=== PATIENT | male | born 1935 | race Caucasian/White ===

== ENCOUNTER 2025-06-23 18:31 | Emergency (ER) | payer MEDICARE, SELFPAY ==
--- NOTE | ~2025-06-23 | CT_ITS ---
EXAMINATION: CT abdomen pelvis wo con DATE: 06/23/2025 23:00 INDICATION: Suprapubic pain. TECHNIQUE: Computed tomography (CT) of the abdomen and pelvis was performed without intravenous contrast. Automated exposure control and iterative reconstruction technique were employed. The dose-length product was 291.30 mGy-cm. COMPARISON: None. FINDINGS: The visualized portions of the lung bases demonstrate mild atelectasis. No pleural effusion. The heart size is normal. There are coronary artery calcifications. No pericardial effusion. Pectus excavatum is noted. The liver and gallbladder are normal. 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 The pancreas, adrenal glands, are normal. There are cysts in the kidneys measuring up to 2.1 cm on the right. The bladder is decompressed by a Haley catheter. There are stones in the bladder measuring up to 2.7 cm in a bladder diverticulum on the left. There is diffuse bladder wall thickening, likely secondary to chronic outlet obstruction from the moderately enlarged prostate. There is diverticulosis of the colon without evidence of diverticulitis. The appendix is not visualized. There are no dilated loops of bowel. There are no pathologically enlarged lymph nodes. There is no free intraperitoneal fluid. There are fusiform aneurysms of the common iliac arteries measuring up to 2.2 cm on the left. 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 IMPRESSION: 1. Bladder stones. Reviewed, dictated and finalized at location E. N [employer] IMPRESSION: 1. Bladder stones.
[2025-06-23 18:41] VITALS: BP 126/74; PULSE 78; RESP 16; TEMP 36.8; O2SAT 100
--- NOTE | 2025-06-23 21:03 | ED_ITS ---
HPI - Male Genitourinary General Chief complaint: Urogenital-Male Stated complaint: male urogenital Time Seen by Provider: 06/23/25 21:02 Source: patient and family Mode of arrival: ambulatory Limitations: no limitations History of Present Illness HPI Narrative: Patient is an 89-year-old male presents to the emergency department accompanied by his son complaining of difficulty urinating. Patient notes over the past 1 week when he was the bathroom he is not able to void any significant amount is starting to get some suprapubic fullness like a sensation in which she needs to pee but isn't getting enough out in his bladder is getting distended. Patient admits to history of this in the past, was found to have bladder stones and needed surgery to get them removed and had a Haley catheter after the procedure. Patient denies any known history of prostate enlargement. Patient denies any nausea, vomiting, fevers, recent injuries, recent illness. Patient admits to regular bowel movements. Patient saw a urologist out of [facility] in the past. Patient admits to urinary frequency and urinary urgency. Related Data Allergies Allergy/AdvReac Type Severity Reaction Status Date / Time brimonidine (From Alphagan P) Allergy Unknown Unknown Verified 06/23/25 18:38 dorzolamide (From Trusopt) Allergy Unknown Unknown Verified 06/23/25 18:38 timolol (From Timoptic) Allergy Unknown Unknown Verified 06/23/25 18:38 oxybutynin Allergy Blurry Verified 06/23/25 18:38 Vision tamsulosin Allergy Blurry Verified 06/23/25 18:38 Vision Review of Systems 2 Review of Systems: A 10 system review of systems was completed on the patient and is negative except for what is stated in the HPI. Nursing and ancillary documentation was reviewed. Exam 2 Narrative: CONST: No acute distress. Well nourished. HENMT: Head is normocephalic and atraumatic. Moist mucous membranes. No posterior oropharynx erythema. EYES: No scleral icterus. NECK: No meningeal signs. RESP: Able to speak in full sentences. Normal respiratory effort. CTAB. CARDIO: Regular rate. 2+ DP and radial pulses bilaterally. GI: Nondistended. Mild suprapubic fullness. Soft. : No CVA tenderness to palpation. SKIN: No rashes or lesions noted on exposed skin. NEURO: Oriented x3. Moves all extremities. EXTREM/MSK/BACK: No pedal edema. PSYCH: Normal affect. Course Vital Signs Vital signs: Vital Signs Temperature 98.2 F 06/23/25 18:41 Pulse Rate 78 06/23/25 18:41 Respiratory Rate 16 06/23/25 18:41 Blood Pressure 126/74 06/23/25 18:41 Pulse Oximetry 100 06/23/25 18:41 Temperature 98.1 F 06/24/25 01:32 Pulse Rate 67 06/24/25 01:32 Respiratory Rate 20 06/24/25 01:32 Blood Pressure 113/76 06/24/25 01:32 Pulse Oximetry 100 06/24/25 01:32 MDM MDM Narrative Medical decision making narrative: Patient presents with the above complaint. Initial vitals are remarkable for no significant abnormalities. Physical examination as noted above. Plan discussed: Laboratory analysis, CT of the pelvis without contrast, continues cardiac monitoring, continuous pulse oximetry, bladder scan. patient has tried avoid twice and only a small amount came out, bladder scan revealed a postvoid residual near 300 cc, Haley catheter ordered for urinary retention. Given patient's history of bladder stones as a source of his urinary retention will obtain a CT. CT of the abdomen pelvis preliminary findings with Radiology impression is a Haley catheter is noted extending through the enlarged prostate gland into the decompressed bladder. Bladder wall prominence is of uncertain significance with complete decompression. However, questionable subtle perivesicular fat stranding raises the suspicion for potential cystitis. There are multiple calcifications noted throughout the bladder. There is a collection of calcification in the presumed left posterior bladder diverticulum measuring 2.7 x 1.5 x 2 cm. Incidental findings include the unenhanced kidneys demonstrate renal vascular calcifications. There is suspected subcentimeter nonobstructing nephrolithiasis on the left. No hydronephrosis or ureteral stones. No bowel obstruction. Evaluation of the bowel mucosa is limited. [id number] stool burden. No free intraperitoneal fluid or pneumoperitoneum. Incidental normal caliber retrocecal appendix. The unenhanced liver, gallbladder, pancreas, spleen, adrenal glands and kidneys are unremarkable. Incidental 1.9 cm cortical cyst involving the superior pole of the right kidney. Atherosclerotic calcification involving the aorta without aneurysm. 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 No acute perivascular abnormality. On reassessment patient is resting comfortably. No acute distress, denies any current complaints, Haley catheter in place and significant amount of urine output present. I discussed all the results including all labs and CT findings with patient and son, plan of care discussed. Patient is unaware of the iliac artery aneurysms, we discussed management and need to follow-up about these with his primary care physician to get a vascular surgery referral. Discussed plan to talk with Urology. patient has been provided with a dose of ceftriaxone for UTI. No old urinary cultures on file. I spoke with Dr. oWodruff from Urology, notes to have the patient follow-up with him in the office, agrees with plan of care for antibiotics and treat for urinary retention with Haley catheter to go home with. Patient was reassessed at the bedside. No changes in physical exam. Patient is in no acute distress. Patient provided with a leg bag, Haley catheter care education provided by nursing staff for both patient and son. The patient has remained stable throughout the entire ED visit. Counseled patient regarding diagnostic results and potential diagnosis. Anticipatory guidance provided. Patient instructed to follow up with Urology in the next 3 days and primary care physician in the next 3 days. Patient counseled on: false reassurance from an emergency department evaluation; no current evidence of a medical emergency; return immediately for any new, recurrent, worsening, concerning, or refractory symptoms. Patient prescribed Keflex. Prescription sent to preferred pharmacy. Medications discussed with patient. Additional verbal and printed discharge instructions were given and discussed with the patient. Patient verbally acknowledges understanding of condition and discharge instructions. All questions were answered to the patient's satisfaction. Patient is in agreement with the plan of care. The patient is stable for discharge and was discharged without incident. Differential Diagnosis Differential Diagnosis: Urinary retention, UTI, bladder stone, prostate enlargement. Lab Data MDM Lab Attestation statement: I personally reviewed the patient's lab results. Lab results narrative: CBC reveals a hemoglobin of 13.2. Comprehensive metabolic panel reveals a chloride of 111, bicarb 21, BUN of 22. Magnesium is 2.0. Urinalysis has a turbid appearance with 2+ protein, 2+ blood, positive nitrate, 3+ leukocyte esterase, 21-50 RBCs, greater than 100 wbc's, 4+ bacteria. 06/23/25 22:00 06/23/25 22:02 Labs: Lab Results 06/23/25 06/23/25 06/23/25 Range/Units 21:35 22:00 22:02 WBC 8.4 (4.5-10.0) K/mm3 RBC 4.13 L (4.6-6.20) M/mm3 Hgb 13.2 L (14.0-18.0) g/dL Hct 40.1 L (42.0-52.0) % MCV 97.1 (80-100) fl MCH 32.0 (26-34) pg MCHC 32.9 (32-36) g/dl RDW 12.5 (11.5-14.5) % Plt Count 156 (150-375) k/mm3 MPV 9.9 (7.4-10.4) fl Immature Gran % (Auto) 0.4 (0-0.5) % Neut % (Auto) 49.4 (45.5-73.1) % Lymph % (Auto) 34.2 (18.3-44.2) % [place] % (Auto) 13.6 H (2.6-8.5) % Eos % (Auto) 1.9 (0-4.4) % Baso % (Auto) 0.5 (0.2-1.2) % Lymph # (Auto) 2.88 (0.9-3.2) K/mm3 [place] # (Auto) 1.1 H (0.1-0.6) K/mm3 Eos # (Auto) 0.2 (0-0.3) K/mm3 Baso # (Auto) 0.0 (0.0-0.1) K/mm3 Abs Immat Gran (auto) 0.03 (0.00-0.031) K/mm3 Absolute Neuts (auto) 4.2 (1.3-6.7) K/mm3 Absolute Nucleated RBC 0.000 (0.0-0.012) K/mm3 Nucleated RBC % 0.0 (0.0-0.2) % Sodium 137 (137-145) mmol/L Potassium 3.9 (3.4-5.0) mmol/L Chloride 111 H (98-107) mmol/L Carbon Dioxide 21 L (22-30) mmol/L Anion Gap 5 (4-12) mmol/L BUN 22 H (9-20) mg/dL Creatinine 1.05 (0.7-1.3) mg/dL Estim Creat Clear Calc 41 ml/min Estimated GFR > 60 (59 - ) Glucose 90 (65-110) mg/dL Calcium 9.0 (8.4-10.2) mg/dL Magnesium 2.0 (1.6-2.3) mg/dL Total Bilirubin 0.5 (0.2-1.3) mg/dL AST 32 (17-59) U/L ALT 24 (6-50) U/L Alkaline Phosphatase 94 (38-126) U/L Total Protein 7.0 (6.3-8.2) g/dL Albumin 3.9 (3.5-5.1) g/dL Urine Color Yellow (Yellow) Urine Appearance Turbid H (Clear) Urine pH 6.5 (5.0-9.0) Ur Specific Coulter 1.017 (1.001-1.035) Urine Protein 2+ H (Negative) mg/dL Urine Glucose (UA) Negative (Negative) mg/dL Urine Ketones Negative (Negative) mg/dL Ur Blood (Man) 2+ H (Negative) Urine Nitrate Positive H (Negative) Urine Bilirubin Negative (Negative) Urine Urobilinogen 1.0 (<2.0) mg/dL Leukocyte Esterase Rfl 3+ H (Negative) NIRALI/UL Urine RBC 21-50 H (0-2) /hpf Urine WBC >100 H (0-3) /hpf Ur Squamous Epith Cells None seen (Few) /hpf Urine Bacteria 4+ H /hpf Urine Casts 3-5 Discharge Plan Discharge Clinical Impression: Acute urinary retention, Enlarged prostate, Bladder stones, Aneurysm artery, iliac, Acute UTI Patient Disposition: Home Condition: Stable Instructions: Antibiotic Form, Urinary Retention in Men (ED), Enlarged Prostate (BPH) (ED), Urinary Tract Infection in Men (ED), Haley Catheter Placement and Care (ED), Bladder Stones (ED) Additional Instructions: Follow-up with your primary care physician in the next few days for reassessment and to discuss further care and vascular surgery referral for your 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 Keep the Haley catheter in place and follow-up with urology in the next 3 days, call to schedule an appointment. Take the antibiotics as prescribed to completion. Return immediately to the emergency department for any new or concerning symptoms especially lack of urine output in the Haley bag, fever, nausea, vomiting, pain, or any emergent concerns for life, limb, eyesight. Patient Language: Romanian Prescriptions: New cephalexin 500 mg capsule 500 mg PO Q6H 7 Days Qty: 28 0RF Follow-up/Referrals: George Woodruff MD [Physician, Urology] - 3 Days PHYSICIAN,LOCATION DIRECTOR [Non-Staff, Internal Medicine] - 3 Days Time of Disposition: 00:59
[2025-06-23 21:46] LABS: Add Urine Microscopic? YES; Appearance Urine Turbid (Clear); Glucose Urine UA Negative (Negative); Leukocyte Esterase Ur 3+ LEU/UL (Negative); Nitrate Urine Positive (Negative); Specific Grav Ur 1.017 (1.001-1.035)
[2025-06-23] MEDS: LIDOCAINE 2% GEL UROJET 10 ML PKG MUCOUS MEM (22:09)
[2025-06-23 22:19] LABS: Hematocrit 40.1 % (42.0-52.0); Hemoglobin 13.2 g/dL (14.0-18.0); Immature Granulocyte Percent A 0.4 % (0-0.5); Lymphocytes Absolute Auto 2.88 K/mm3 (0.9-3.2); Mean Corpuscular HGB Conc 32.9 g/dl (32-36); Mean Corpuscular Hemoglobin 32.0 pg (26-34); Mean Corpuscular Volume 97.1 fl (80-100); Nucleated Red Blood Cells Absolute Auto 0.000 K/mm3 (0.0-0.012); Nucleated Red Blood Cells Perc 0.0 % (0.0-0.2); Platelet Count Result 156 k/mm3 (150-375); Red Blood Count 4.13 M/mm3 (4.6-6.20); White Blood Count 8.4 K/mm3 (4.5-10.0)
[2025-06-23 22:34] LABS: Alanine Aminotransferase 24 U/L (6-50); Albumin Level 3.9 g/dL (3.5-5.1); Alkaline Phosphatase 94 U/L (38-126); Anion Gap 5 mmol/L (4-12); Aspartate Amino Transferase 32 U/L (17-59); Bilirubin,Total 0.5 mg/dL (0.2-1.3); Blood Urea Nitrogen 22 mg/dL (9-20); Calcium 9.0 mg/dL (8.4-10.2); Carbon Dioxide 21 mmol/L (22-30); Chloride 111 mmol/L (98-107); Estimated CRCL calculation 41 ml/min; Estimated Glomerular Filt Rate > 60; Glucose 90 mg/dL (65-110); Magnesium 2.0 mg/dL (1.6-2.3); Potassium 3.9 mmol/L (3.4-5.0); Sodium 137 mmol/L (137-145); Total Protein 7.0 g/dL (6.3-8.2)
[2025-06-23] MEDS: cefTRIAXone 1 GM in SODIUM CHLORIDE 0.9% IV 50 ML 100 ML IVPB (23:31)
[2025-06-24 01:32] VITALS: BP 113/76; PULSE 67; RESP 20; TEMP 36.7; O2SAT 100
== END 2025-06-24 01:34 | disposition home or self-care (01) ==
PROVIDERS: Emergency Provider Student in an Organized Health Care Education/Training Program; PCP Family Medicine
DX: N39.0 Urinary tract infection, site not specified (principal); I72.3 Aneurysm of iliac artery; N21.0 Calculus in bladder; N40.1 Benign prostatic hyperplasia with lower urinary tract symptoms; R33.8 Other retention of urine
CPT/HCPCS: 36415; 51702; 74176; 80053; 81001; 83735; 85025; 87077; 87086; 87186; 96365; 99284; J0696